=== PATIENT | male | born 1985 | race Caucasian/White ===

== ENCOUNTER → 2017-12-05 | Outpatient (CLI) | payer OTHER | LOC: M.RAD 14:30 | DX: R07.9 Chest pain, unspecified (principal) ==

== ENCOUNTER → 2018-12-01 | Outpatient (CLI) | payer OTHER | LOC: M.ULTRA 09:30 | DX: R10.10 Upper abdominal pain, unspecified (principal) ==

== ENCOUNTER → 2018-12-08 | Outpatient (CLI) | payer OTHER | LOC: M.CT 09:01 | DX: K42.9 Umbilical hernia without obstruction or gangrene (principal) ==

== ENCOUNTER → 2021-09-15 | Outpatient (CLI) | payer OTHER ==
--- NOTE | 2021-09-30 19:29 | PF ---
[place] [address] PULMONARY FUNCTION REPORT Name: SALMA ELIZABETH Room: [facility].#: [id number] Admission: 09/15/21 Attend Phys: Lydia Carrion, Discharge: Date of : 81 Report #: [id number] THIS REPORT FOR: cc: Lydia Carrion,Simón Corbett MD ~ DATE OF VISIT: 09/15/2021 PULMONARY FUNCTION TEST The FEV1/FVC ratio is normal at 72% with an FVC normal at 99%. The FEV1 is also normal at 89%. The FEF 25-75 is normal at 67%. After the administration of a bronchodilator, there is no significant increase in any of these values. The patient's post-bronchodilator FEV1 is 3.75 liters. The total lung capacity is normal at 104% with a residual volume normal at 95%. The DLCO is also normal at 92%. IMPRESSION: Normal pulmonary function test. Please note that normal pulmonary function tests do not rule out bronchial asthma. <ELECTRONICALLY SIGNED> By: Simón Rouse MD 09/30/21 [id number] 1945Ayon Rouse MD /nt
== END ==
LOC: M.PUL 12:58
PROVIDERS: ATTEND Nurse Practitioner Family
DX: J45.20 Mild intermittent asthma, uncomplicated (principal); R06.02 Shortness of breath; Z86.16 Personal history of COVID-19